=== PATIENT | female | born 1985 | race Caucasian/White ===

== ENCOUNTER 2018-08-07 08:22 | Emergency (ER) | payer SELFPAY ==
[2018-08-07 08:29] VITALS: BP 130/82
--- NOTE | 2018-08-07 08:44 | ER Document Report ---
ED General - General Chief Complaint: Knee Pain Stated Complaint: KNEE PAIN Time Seen by Provider: 08/07/18 08:44 Notes: Patient is a 32 year old female that presents to the emergency department for chief complaint of right knee pain and redness. Patient reports that she noticed pain and swelling of her right knee over this past weekend, but worsened significantly today. She currently rates her pain as a 9/10 over the knee cap area where the redness is. She describes the pain as a constant burning and aching sensation. She states she has felt hot but has not taken her temperature at home. Denies vomiting, headache, or noticing streaking up her leg. She states she has a rash on most of her joints that has not been diagnosed specfically, and has a patch below the right knee she thinks might have started this. Past Medical History: dermatologic condition Past Surgical History: cholecystectomy Social History: denies tobacco, ETOH, or drug use. Family History: Reviewed and noncontributory for presenting illness Allergies: Reviewed, see documented allergy list. REVIEW OF SYSTEMS: Other than noted above, the 12 point review of systems was reviewed with the patient and were negative, all pertinent findings are included in the HPI. PHYSICAL EXAMINATION: Vital signs reviewed, nursing noted reviewed. GENERAL: Well-appearing, well-nourished and in no acute distress. HEAD: Atraumatic, normocephalic. EYES: Eyes appear normal, extraocular movements intact, sclera anicteric, conjunctiva are normal. ENT: nares patent, oropharynx clear without exudates. Moist mucous membranes. NECK: Normal range of motion, supple without lymphadenopathy LUNGS: Breath sounds clear to auscultation bilaterally and equal. No wheezes rales or rhonchi. HEART: Regular rate and rhythm without murmurs ABDOMEN: Soft, nontender, normoactive bowel sounds. No rebound, guarding, or rigidity. No masses appreciated. EXTREMITIES: Right knee: There is tenderness over an area of erythema over the right patella. There is no joint line tenderess, no joint effusion appreciated , and she does no complain of joint pain with ROM of the right knee. The rest of the patients extremity exam is Nontender, good range of motion, no pitting or edema. NEUROLOGICAL: No focal neurological deficits. Moves all extremities spontaneously Motor and sensory grossly intact on exam. PSYCH: Normal mood, normal affect. SKIN: Warm, Dry, normal turgor, there is redness and minimal swelling over the anterior aspect over the right knee, just distal to this there is a large plaque with breaks in the skin with open aspects (no active bleeding), that has streaking toward the area of erythema over the knee. TRAVEL OUTSIDE OF THE [place] IN LAST 30 DAYS: No - Related Data Allergies/Adverse Reactions: clarithromycin [From Biaxin] Allergy (Intermediate, Verified 01/27/15 21:04) Hives oxycodone HCl [From OxyContin] Allergy (Intermediate, Verified 01/27/15 21:04) Agression, mood swings milk [Milk] Adverse Reaction (Intermediate, Verified 01/27/15 21:04) N&V Past Medical History - Social History Smoking Status: Never Smoker Family History: None, Reviewed & Not Pertinent - Past Medical History Cardiac Medical History: Denies: Hx Pulmonary Embolism Pulmonary Medical History: Reports: Hx Asthma - Last attack as child Denies: Hx Sleep Apnea, Hx Tuberculosis Neurological Medical History: Denies: Hx Seizures GI Medical History: Reports: Hx Gastroesophageal Reflux Disease - with Musculoskeletal Medical History: Denies Hx Fibromyalgia Traumatic Medical History: Denies: Hx Fractures Past Surgical History: Reports: Hx Section - x2, Hx Cholecystectomy. Denies: Hx Hysterectomy, Hx Pacemaker - Immunizations Hx Diphtheria, Pertussis, Tetanus Vaccination: Yes - within 5 years Physical Exam - Vital signs Vitals: Temp Pulse Resp BP Pulse Ox 97.9 F 100 18 130/82 H 98 08/07/18 08:27 08/07/18 08:27 08/07/18 08:27 08/07/18 08:27 08/07/18 08:27 Course - Re-evaluation Re-evalutation: Patient seen and examined vital signs reviewed. Patient was treated with norco 5mg/325mg and naproxen 500mg The patient was re-evaluated and was stable Evaluation was most consistent with right knee cellulitis, patient will be discharged with prescriptions for bactrim DS and keflex and advised close follow -up. She did not have any concerning signs of septic arthritis on my exam, no inguinal lympadenopathy, or lymphangitis, and felt this could be treated as an outpatient, patient given strict return precautions. Results were discussed with the patient at this point, after careful consideration I feel that that patient can be discharged from the emergency department, the patient was educated treatments and reasons to return to the emergency department based on their presumed diagnosis as noted above, they were advised to followup with a primary care physician in 2-3 days. Patient was agreeable to plan of care. *Note is created using voice recognition software and may contain spelling, syntax or grammatical errors. - Vital Signs Vital signs: Temp Pulse Resp BP Pulse Ox 97.9 F 100 18 130/82 H 98 08/07/18 08:27 08/07/18 08:27 08/07/18 08:27 08/07/18 08:27 08/07/18 08:27 Discharge - Discharge Clinical Impression: Cellulitis Qualifiers: Site of cellulitis: extremity Site of cellulitis of extremity: lower extremity Laterality: right Qualified Code(s): L03.115 - Cellulitis of right lower limb Condition: Stable Disposition: HOME, SELF-CARE Additional Instructions: If you notice that the area of redness is worsening after 24-48 hours of treatment with antibiotics, do not hesitate to return to the emergency department. Please follow-up with your primary care physician otherwise, call for an appointment today. Please complete the entire course of antibiotics prescribed. Prescriptions: Cephalexin Monohydrate [Keflex 500 mg Capsule] 500 mg PO Q8H 5 Days #21 capsule Naproxen [Naprosyn] 500 mg PO BID PRN #30 tablet PRN Reason: knee pain Sulfamethoxazole/Trimethoprim [Bactrim Ds Tablet] 1 each PO BID #14 tablet Referrals: [facility] [Provider Group] - Follow up in 3-5 days PK COOK MD [ACTIVE STAFF] - Follow up in 3-5 days (or your primary care. )
[2018-08-07] MEDS ORDERED: NAPROXEN 250 MG TABLET PO ONE (08:59)
[2018-08-07] MEDS ORDERED: HYDROCODONE/ACETAMINOPHEN 5-325 MG (6 TAB/ER DISP) PO PRN (09:00)
[2018-08-07] MEDS ORDERED: HYDROCODONE/ACETAMINOPHEN 5-325 MG TABLET PO ONE (09:00)
== END 2018-08-07 09:19 | disposition home or self-care (01) ==
LOC: ER 08:22
DX: L03.115 Cellulitis of right lower limb (principal); M25.561 Pain in right knee; Z90.49 Acquired absence of other specified parts of digestive tract; Z88.6 Allergy status to analgesic agent; Z88.1 Allergy status to other antibiotic agents; Z91.011 Allergy to milk products
CPT/HCPCS: 99283

== ENCOUNTER 2019-07-17 00:55 | Emergency (ER) | payer SELFPAY ==
[2019-07-17 01:21] LABS: ABSOLUTE BASOPHILS # (AUTO) 0.1 10^3/uL (0.0-0.2); ABSOLUTE EOSINOPHILS # (AUTO) 0.3 10^3/uL (0.0-0.6); ABSOLUTE LYMPHOCYTES (AUTO) 3.6 10^3/uL (0.5-4.7); ABSOLUTE MONOCYTES (AUTO) 0.8 10^3/uL (0.1-1.4); ABSOLUTE NEUT (AUTO) 4.5 10^3/uL (1.7-8.2); BASOPHILS % (AUTO) 0.8 % (0-2); EOSINOPHILS % (AUTO) 3.4 % (0-6); HEMOGLOBIN 13.1 g/dL (12.0-15.5); LYMPHOCYTES % (AUTO) 38.9 % (13-45); MEAN CORPUSCULAR HEMOGLOBIN 31.7 pg (27.0-33.4); MEAN CORPUSCULAR HGB CONC 34.4 g/dL (32.0-36.0); MEAN CORPUSCULAR VOLUME 92 fl (80-97); MONOCYTES % (AUTO) 8.9 % (3-13); PLATELET COUNT 341 10^3/uL (150-450); RED BLOOD COUNT 4.13 10^6/uL (3.72-5.28); RED CELL DISTRIBUTION WIDTH 13.3 % (11.5-14.0); TOTAL CELLS COUNTED % (AUTO) 100 %; WHITE BLOOD COUNT 9.3 10^3/uL (4.0-10.5)
[2019-07-17 01:31] LABS: APPEARANCE,URINE SLIGHTLY-CLOUDY; BILIRUBIN,URINE NEGATIVE (NEGATIVE); COLOR,URINE YELLOW; GLUCOSE, URINE NEGATIVE (NEGATIVE); KETONES,URINE NEGATIVE (NEGATIVE); LEUKOCYTE ESTERASE,URINE NEGATIVE (NEGATIVE); NITRITE,URINE NEGATIVE (NEGATIVE); PROTEIN,URINE 100 mg/dL (NEGATIVE); URINE SPECIFIC GRAVITY 1.023; UROBILINOGEN,URINE NEGATIVE mg/dL (<2.0)
[2019-07-17 01:40] LABS: ALBUMIN 4.3 g/dL (3.5-5.0); ALKALINE PHOSPHATASE 54 U/L (38-126); ANION GAP 10 (5-19); ASPARTATE AMINO TRANSFERASE 19 U/L (14-36); BILIRUBIN,DIRECT 0.1 mg/dL (0.0-0.4); BILIRUBIN,TOTAL 0.2 mg/dL (0.2-1.3); BLOOD UREA NITROGEN 13 mg/dL (7-20); CALCIUM 9.5 mg/dL (8.4-10.2); CARBON DIOXIDE 24 mmol/L (22-30); CHLORIDE 106 mmol/L (98-107); GLUCOSE 106 mg/dL (75-110); POTASSIUM 3.8 mmol/L (3.6-5.0); TOTAL PROTEIN 7.2 g/dL (6.3-8.2)
[2019-07-17] MEDS ORDERED: KETOROLAC TROMETHAMINE INJ/PF 30 MG/1 ML SDV IV ONE ×2 (03:48→09:20)
[2019-07-17] MEDS ORDERED: ONDANSETRON HCL INJ/PF 4 MG/2 ML SDV IV ONE ×3 (03:49→09:20)
--- NOTE | 2019-07-17 05:39 | ER Document Report ---
ED General - General TRAVEL OUTSIDE OF THE [place] IN LAST 30 DAYS: No - HPI Onset: Just prior to arrival Onset/Duration: Gradual Severity: Moderate Pain Level: 3 Exacerbated by: Movement Relieved by: Denies Similar symptoms previously: Yes Recently seen / treated by doctor: Yes <SHANTELL VELASQUEZ - Last Filed: 07/17/19 05:36> <ANGIE MEDEIROS IV - Last Filed: 07/17/19 10:58> - General Chief Complaint: Abdominal Pain Stated Complaint: ABDOMINAL PAIN Time Seen by Provider: 07/17/19 03:34 Primary Care Provider: GARRY MORENO MD [NO LOCAL MD] - Follow up as needed - HPI Context: 33 year old with left lower back/ flank pain that is intense and unremitting. No fever or chills. Nausea without vomiting. Pain radiates around flank. No h/o stones. FDLMP is now. (SHANTELL VELASQUEZ) - Related Data Allergies/Adverse Reactions: clarithromycin [From Biaxin] Allergy (Intermediate, Verified 01/27/15 21:04) Hives oxycodone HCl [From OxyContin] Allergy (Intermediate, Verified 01/27/15 21:04) Agression, mood swings milk [Milk] Adverse Reaction (Intermediate, Verified 01/27/15 21:04) N&V Past Medical History - Social History Smoking Status: Current Every Day Smoker Chew tobacco use (# tins/day): No Frequency of alcohol use: None Drug Abuse: None Family History: None, Reviewed & Not Pertinent Patient has suicidal ideation: No Patient has homicidal ideation: No - Past Medical History Cardiac Medical History: Denies: Hx Pulmonary Embolism Pulmonary Medical History: Reports: Hx Asthma - Last attack as child Denies: Hx Sleep Apnea, Hx Tuberculosis Neurological Medical History: Denies: Hx Seizures Renal/ Medical History: Denies: Hx Peritoneal Dialysis GI Medical History: Reports: Hx Gastroesophageal Reflux Disease - with Musculoskeletal Medical History: Denies Hx Fibromyalgia Traumatic Medical History: Denies: Hx Fractures Past Surgical History: Reports: Hx Section - x2, Hx Cholecystectomy. Denies: Hx Hysterectomy, Hx Pacemaker - Immunizations Hx Diphtheria, Pertussis, Tetanus Vaccination: Yes - within 5 years <SHANTELL VELASQUEZ P - Last Filed: 07/17/19 05:36> Review of Systems - Review of Systems Constitutional: No symptoms reported EENT: No symptoms reported Cardiovascular: No symptoms reported Respiratory: No symptoms reported Gastrointestinal: No symptoms reported Genitourinary: No symptoms reported Female Genitourinary: No symptoms reported Musculoskeletal: No symptoms reported Skin: No symptoms reported Hematologic/Lymphatic: No symptoms reported Neurological/Psychological: No symptoms reported <SHANTELL VELASQUEZ P - Last Filed: 07/17/19 05:36> Physical Exam - Vital signs Interpretation: Normal - General General appearance: Appears well, Alert - HEENT Head: Normocephalic, Atraumatic Eyes: Normal Pupils: PERRL - Respiratory Respiratory status: No respiratory distress Chest status: Nontender Breath sounds: Normal Chest palpation: Normal - Cardiovascular Rhythm: Regular Heart sounds: Normal auscultation Murmur: No - Abdominal Inspection: Normal Distension: No distension Bowel sounds: Normal Tenderness: Nontender Organomegaly: No organomegaly - Back Back: Normal, Nontender - Extremities General upper extremity: Normal inspection, Nontender, Normal color, Normal ROM, Normal temperature General lower extremity: Normal inspection, Nontender, Normal color, Normal ROM, Normal temperature, Normal weight bearing. No: Balbir's sign - Neurological Neuro grossly intact: Yes Cognition: Normal Orientation: AAOx4 Caro Coma Scale Eye Opening: Spontaneous [place] Coma Scale Verbal: Oriented [place] Coma Scale Motor: Obeys Commands [place] Coma Scale Total: 15 Speech: Normal Motor strength normal: LUE, RUE, LLE, RLE Sensory: Normal - Psychological Associated symptoms: Normal affect, Normal mood - Skin Skin Temperature: Warm Skin Moisture: Dry Skin Color: Normal <SHANTELL VELASQUEZ P - Last Filed: 07/17/19 05:36> - Vital signs Vitals: Temp Pulse Resp BP Pulse Ox 97.5 F 67 20 147/92 H 100 07/17/19 00:58 07/17/19 00:58 07/17/19 00:58 07/17/19 00:58 07/17/19 00:58 Course - Laboratory Result Diagrams: 07/17/19 01:05 07/17/19 01:05 <SHANTELL VELASQUEZ P - Last Filed: 07/17/19 05:36> - Laboratory Result Diagrams: 07/17/19 01:05 07/17/19 01:05 <ANGIE MEDEIROS IV - Last Filed: 07/17/19 10:58> - Re-evaluation Re-evalutation: 07/17/19 05:38 MDM 33 year old with left flank pain. Somewhat sounds colicy. No fever. Blood in urine but currently having mences. (SHANTELL VELASQUEZ) - Vital Signs Vital signs: Temp Pulse Resp BP Pulse Ox 97.5 F 67 16 122/76 98 07/17/19 00:58 07/17/19 00:58 07/17/19 07:00 07/17/19 07:00 07/17/19 07:01 - Laboratory Laboratory results interpreted by me: 07/17/19 01:05 Urine Protein 100 H Urine Blood LARGE H Discharge <SHANTELL VELASQUEZ - Last Filed: 07/17/19 05:36> <ANGIE MEDEIROS IV - Last Filed: 07/17/19 10:58> - Discharge Clinical Impression: Left ureteral calculus Condition: Good Disposition: HOME, SELF-CARE Instructions: Kidney Stone ([facility]) Additional Instructions: FOLLOW UP WITH UROLOGY INSTRUCTED HOME CARE INSTRUCTIONS & INFORMATION: Thank you for choosing us for your medical needs. We hope you're satisfied with the care you received. After you leave, you must properly care for your problem and, at the same time, observe its progress. Any condition can change. Some illnesses can change rapidly over hours or days. If your condition worsens, return to the Emergency Department or see your physician promptly. ABOUT YOUR X-RAYS AND EKG'S: If you had an EKG or X-rays taken, they have been read by the Emergency Physician. The X-rays and EKG's will also be read by a Radiologist or Tannery Gummer within 24 hours. If discrepancies are noted, you will be notified by telephone. Please be certain the ED has a correct telephone number & address where you can be reached. Also, realize that some fractures or abnormalities do not show up on initial X-rays. If your symptoms continue, see your physician. ABOUT YOUR LABORATORY TEST: If you had laboratory tests, the results have been reviewed by the Emergency Physician. Some test results (for example cultures) may not be available for several days. You will be contacted if any test result shows you need additional treatment. Please be certain the ED has a correct telephone number and address where you can be reached. ABOUT YOUR MEDICATIONS: You will receive instructions on how to take your m edicine on the prescription label you receive. Additional information may be provided by the Pharmacy. If you have questions afterwards, call the ED for clarification or further instructions. Some prescribed medications may cause drowsiness. Do not perform tasks such as driving a car or operating machinery without consulting your Pharmacist. If you feel you need a refill of pain medication, your condition will need re-evaluation. Please do not call for a refill of any medication. ABOUT YOUR SIGNATURE: Signature of this document acknowledges to followin. Understanding that you received emergency treatment and that you may be released before al medical problems are known or treated. Please be certain the ED has a correct phone number & address where you can be reached. 2. Acknowledgement that you will arrange for follow-up care as recommended. 3. Authorization for the Emergency Physician to provide information to your follow-up Physician in order to maximize your care. AT ANY TIME, IF YOUR SYMPTOMS CHANGE SIGNIFICANTLY OR WORSEN OR YOU DEVELOP NEW SYMPTOMS, RETURN TO THE EMERGENCY DEPARTMENT IMMEDIATELY FOR RE-EVALUATION. OUR GOAL IS TO PROVIDE EXCELLENT MEDICAL CARE! WE HOPE THAT WE HAVE MET YOUR EXPECTATIONS DURING YOUR EMERGENCY DEPARTMENT VISIT AND THAT YOU FEEL YOU HAVE RECEIVED EXCELLENT CARE! Prescriptions: Ondansetron [Zofran Odt 4 mg Tablet] 1 - 2 tab PO Q8HP PRN #30 tab.rapdis PRN Reason: For Nausea/Vomiting Tamsulosin HCl [Flomax 0.4 mg Cap.sr] 0.4 mg PO DAILY #10 cap.sr.24h Ketorolac Tromethamine [Toradol 10 mg Tablet] 10 mg PO Q6 PRN #20 tablet PRN Reason: Pain Scale Per Md Hydrocodone/Acetaminophen [Vicodin 5-300 mg Tablet] 1 each PO Q6H PRN #15 tablet PRN Reason: Pain Scale Per Md Referrals: GARRY MORENO MD [NO LOCAL MD] - Follow up as needed
[2019-07-17] MEDS ORDERED: HYDROMORPHONE HCL INJ/PF 2 MG/ML AMPULE IV ONE (06:03)
[2019-07-17] MEDS ORDERED: PROMETHAZINE HCL INJ 25 MG/1 ML VIAL IV ONE (07:26)
[2019-07-17] MEDS ORDERED: FENTANYL CITRATE INJ/PF 100 MCG/2 ML AMPUL IV ONE (07:29)
--- NOTE | 2019-07-17 08:22 | RADIOLOGY REPORT (SQ) ---
EXAM DESCRIPTION: CT ABD/PELVIS WITH IV ONLY COMPLETED DATE/TIME: 07/17/2019 5:54 am REASON FOR STUDY: left flank pain. HCG NEGATIVE. COMPARISON: None. TECHNIQUE: CT scan of the abdomen and pelvis performed using helical scanning technique with dynamic intravenous contrast injection. No oral contrast. Images reviewed with lung, soft tissue, and bone windows. Reconstructed coronal and sagittal MPR images reviewed. Delayed images for evaluation of the urinary system also acquired. All images stored on PACS. All CT scanners at this facility use dose modulation, iterative reconstruction, and/or weight based d osing when appropriate to reduce radiation dose to as low as reasonably achievable (ALARA). [facility]: Dose Right [facility]: CareDose [facility]: Dose Right [facility]: Teradose 4D [facility]: TrunqShow CONTRAST TYPE AND DOSE: 98 mL Omnipaque 350 iodinated contrast IV RENAL FUNCTION: None required. The patient is less than 50 years old. RADIATION DOSE: . LIMITATIONS: None. FINDINGS: LOWER CHEST: No significant findings. No nodules or infiltrates. LIVER: Normal size. No masses. No dilated ducts. SPLEEN: Normal size. No focal lesions. PANCREAS: No masses. No significant calcifications. No adjacent inflammation or peripancreatic fluid collections. Pancreatic duct not dilated. GALLBLADDER: Surgically absent. ADRENAL GLANDS: No significant masses or asymmetry. RIGHT KIDNEY AND URETER: No solid masses. Tiny nonobstructive superior pole calculus (series 3, steve ge [id number]). No hydronephrosis or hydroureter. LEFT KIDNEY AND URETER: No solid masses. There is a 4 mm obstructive calculus of the distal left ur eter with moderate associated left hydronephrosis and hydroureter and perinephric fat stranding. AORTA AND VESSELS: No aneurysm. No dissection. Renal arteries, SMA, celiac without stenosis. RETROPERITONEUM: No retroperitoneal adenopathy, hemorrhage or masses. BOWEL AND PERITONEAL CAVITY: No masses or inflammatory changes. No free fluid or peritoneal masses. APPENDIX: Normal. PELVIS: No mass. No free fluid. Normal bladder. ABDOMINAL WALL: No masses. No hernias. BONES: No significant or acute findings. OTHER: No other significant finding. IMPRESSION: 1. There is a 4 mm obstructive calculus of the distal left ureter with moderate associat ed left hydronephrosis and hydroureter and perinephric fat stranding. 2. Tiny nonobstructive superior pole calculus of the right kidney. TECHNICAL DOCUMENTATION: JOB ID: [id number] Quality ID # [id number]: Final reports with documentation of one or more dose reduction techniques (e.g., Au tomated exposure control, adjustment of the mA and/or kV according to patient size, use of iterative reconstruction technique) 2010 [employer]- All Rights Reserved Reading location - IP/workstation name: [email or web address]
[2019-07-17] MEDS ORDERED: TAMSULOSIN HCL 0.4 MG CAP.SR.24H PO ONE (09:20)
[2019-07-17 11:11] VITALS: BP 115/58
== END 2019-07-17 11:11 | disposition home or self-care (01) ==
LOC: ER 00:55
DX: N20.1 Calculus of ureter (principal); R10.9 Unspecified abdominal pain; M54.5 Low back pain; R11.0 Nausea; F17.200 Nicotine dependence, unspecified, uncomplicated; Z88.3 Allergy status to other anti-infective agents; Z88.6 Allergy status to analgesic agent; Z90.49 Acquired absence of other specified parts of digestive tract
CPT/HCPCS: 96376; 99284; 96374; 96375; 36415; 83690; 85025; 81025; 80053; 81001; 74177; J3010; J1885; J1170; J2550; J2405

== ENCOUNTER 2019-07-20 11:26 | Emergency (ER) | payer SELFPAY ==
[2019-07-20] MEDS ORDERED: ONDANSETRON HCL INJ/PF 4 MG/2 ML SDV IV ONE (11:43)
[2019-07-20] MEDS ORDERED: MORPHINE SULFATE 10 MG/ML INJ IV ONE ×2 (11:43→12:08)
--- NOTE | 2019-07-20 11:44 | ER Document Report ---
ED Medical Screen (RME) - General Chief Complaint: Possible Kidney Stone Stated Complaint: POSSIBLE KIDNEY STONE Time Seen by Provider: 07/20/19 11:42 Mode of Arrival: Ambulatory Information source: Patient Notes: Patient presents complaining of left flank pain for the past 4 days. Patient was recently diagnosed with a kidney stone. Patient reports nausea and vomiting at home and pain that is not managed with her pain medicine at home. I have greeted and performed a rapid initial assessment of this patient. A comprehensive ED assessment and evaluation of the patient, analysis of test results and completion of the medical decision making process will be conducted by additional ED providers. TRAVEL OUTSIDE OF THE [place] IN LAST 30 DAYS: No - Related Data Allergies/Adverse Reactions: clarithromycin [From Biaxin] Allergy (Intermediate, Verified 01/27/15 21:04) Hives oxycodone HCl [From OxyContin] Allergy (Intermediate, Verified 01/27/15 21:04) Agression, mood swings milk [Milk] Adverse Reaction (Intermediate, Verified 01/27/15 21:04) N&V Past Medical History - Social History Family history: None - Past Medical History Cardiac Medical History: Denies: Hx Pulmonary Embolism Pulmonary Medical History: Reports: Hx Asthma - Last attack as child Denies: Hx Sleep Apnea, Hx Tuberculosis Neurological Medical History: Denies: Hx Seizures Renal/ Medical History: Denies: Hx Peritoneal Dialysis GI Medical History: Reports: Hx Gastroesophageal Reflux Disease - with Musculoskeltal Medical History: Denies Hx Fibromyalgia Traumatic Medical History: Denies: Hx Fractures Past Surgical History: Reports: Hx Section - x2, Hx Cholecystectomy. Denies: Hx Hysterectomy, Hx Pacemaker - Immunizations Hx Diphtheria, Pertussis, Tetanus Vaccination: Yes - within 5 years Physical Exam - Vital signs Vitals: Temp Pulse Resp BP Pulse Ox 97.4 F 107 H 19 138/106 H 97 07/20/19 11:30 07/20/19 11:30 07/20/19 11:30 07/20/19 11:30 07/20/19 11:30 - General General appearance: Alert, Anxious Notes: Left flank pain Course - Vital Signs Vital signs: Temp Pulse Resp BP Pulse Ox 97.4 F 107 H 19 138/106 H 97 07/20/19 11:30 07/20/19 11:30 07/20/19 11:30 07/20/19 11:30 07/20/19 11:30
[2019-07-20] MEDS ORDERED: NORMAL SALINE 1000 ML 1,000 ML IV ONE (12:08)
[2019-07-20 12:23] LABS: ABSOLUTE BASOPHILS # (AUTO) 0.1 10^3/uL (0.0-0.2); ABSOLUTE EOSINOPHILS # (AUTO) 0.2 10^3/uL (0.0-0.6); ABSOLUTE LYMPHOCYTES (AUTO) 1.6 10^3/uL (0.5-4.7); ABSOLUTE NEUT (AUTO) 11.3 10^3/uL (1.7-8.2); BASOPHILS % (AUTO) 0.4 % (0-2); EOSINOPHILS % (AUTO) 1.1 % (0-6); HEMATOCRIT 37.7 % (36.0-47.0); HEMOGLOBIN 12.7 g/dL (12.0-15.5); LYMPHOCYTES % (AUTO) 11.3 % (13-45); MEAN CORPUSCULAR HEMOGLOBIN 30.9 pg (27.0-33.4); MEAN CORPUSCULAR HGB CONC 33.6 g/dL (32.0-36.0); MEAN CORPUSCULAR VOLUME 92 fl (80-97); MONOCYTES % (AUTO) 7.4 % (3-13); PLATELET COUNT 330 10^3/uL (150-450); RED CELL DISTRIBUTION WIDTH 13.3 % (11.5-14.0); SEGMENTED NEUTROPHILS % (AUTO) 79.8 % (42-78); TOTAL CELLS COUNTED % (AUTO) 100 %; WHITE BLOOD COUNT 14.2 10^3/uL (4.0-10.5)
[2019-07-20 12:33] LABS: APPEARANCE,URINE SLIGHTLY-CLOUDY; BILIRUBIN,URINE NEGATIVE (NEGATIVE); COLOR,URINE YELLOW; GLUCOSE, URINE NEGATIVE (NEGATIVE); KETONES,URINE TRACE mg/dL (NEGATIVE); PROTEIN,URINE NEGATIVE (NEGATIVE); URINE SPECIFIC GRAVITY 1.013; UROBILINOGEN,URINE NEGATIVE mg/dL (<2.0)
[2019-07-20] MEDS ORDERED: KETOROLAC TROMETHAMINE INJ/PF 30 MG/1 ML SDV IV ONE (12:33)
[2019-07-20] MEDS ORDERED: PROMETHAZINE HCL INJ 25 MG/1 ML VIAL IV ONE (12:33)
[2019-07-20 12:39] LABS: ANION GAP 11 (5-19); BLOOD UREA NITROGEN 14 mg/dL (7-20); CALCIUM 10.1 mg/dL (8.4-10.2); CARBON DIOXIDE 24 mmol/L (22-30); CHLORIDE 104 mmol/L (98-107); GLUCOSE 93 mg/dL (75-110); POTASSIUM 4.3 mmol/L (3.6-5.0)
--- NOTE | 2019-07-20 12:45 | RADIOLOGY REPORT (SQ) ---
EXAM DESCRIPTION: KUB/ABDOMEN (SINGLE VIEW) COMPLETED DATE/TIME: 07/20/2019 12:34 pm REASON FOR STUDY: renal colic COMPARISON: CT. NUMBER OF VIEWS: One view. TECHNIQUE: Supine radiographic image of the abdomen acquired. LIMITATIONS: None. FINDINGS: BOWEL GAS PATTERN: Normal bowel gas pattern. No dilated loops. CALCIFICATIONS: Distal left ureteral calculus. Seen previous CT. SOFT TISSUES: No gross mass or suggestion of organomegaly. HARDWARE: Right upper quadrant clips. BONES: No acute fracture. No worrisome bone lesions. OTHER: No other significant finding. IMPRESSION: Persistent distal left ureteral calculus. TECHNICAL DOCUMENTATION: JOB ID: [id number] [employer]- All Rights Reserved Reading location - IP/workstation name: [email or web address]
[2019-07-20] MEDS ORDERED: METOCLOPRAMIDE HCL INJ/PF 10 MG/2 ML SDV IV ONE (13:05)
[2019-07-20] MEDS ORDERED: HYDROMORPHONE HCL INJ/PF 2 MG/ML AMPULE IV STA (13:05)
--- NOTE | 2019-07-20 13:09 | ER Document Report ---
ED General - General Chief Complaint: Flank Pain Stated Complaint: POSSIBLE KIDNEY STONE Time Seen by Provider: 07/20/19 11:42 Mode of Arrival: Ambulatory TRAVEL OUTSIDE OF THE [place] IN LAST 30 DAYS: No - HPI Notes: This is a 33-year-old female who presents with a complaint of left flank pain for the past few days. Patient describes sharp colicky pain radiating to left groin. [place] of the symptoms include nausea, vomiting, difficulty urinating. Patient was seen here on Monday with similar presentation. She was diagnosed with a 4 mm ureteral stone. Patient states that she was sent home on Vicodin, Toradol and Flomax. She states the medications are not helping. She denies any fever or chills. Describes her symptoms as severe. - Related Data Allergies/Adverse Reactions: clarithromycin [From Biaxin] Allergy (Intermediate, Verified 01/27/15 21:04) Hives oxycodone HCl [From OxyContin] Allergy (Intermediate, Verified 01/27/15 21:04) Agression, mood swings milk [Milk] Adverse Reaction (Intermediate, Verified 01/27/15 21:04) N&V Past Medical History - General Information source: Patient - Social History Smoking Status: Current Every Day Smoker Chew tobacco use (# tins/day): No Frequency of alcohol use: None Drug Abuse: None Family History: None, Reviewed & Not Pertinent Patient has suicidal ideation: No Patient has homicidal ideation: No - Past Medical History Cardiac Medical History: Denies: Hx Pulmonary Embolism Pulmonary Medical History: Reports: Hx Asthma - Last attack as child Denies: Hx Sleep Apnea, Hx Tuberculosis Neurological Medical History: Denies: Hx Seizures Renal/ Medical History: Denies: Hx Peritoneal Dialysis GI Medical History: Reports: Hx Gastroesophageal Reflux Disease - with Musculoskeletal Medical History: Denies Hx Fibromyalgia Traumatic Medical History: Denies: Hx Fractures Past Surgical History: Reports: Hx Section - x2, Hx Cholecystectomy. Denies: Hx Hysterectomy, Hx Pacemaker - Immunizations Hx Diphtheria, Pertussis, Tetanus Vaccination: Yes - within 5 years Review of Systems - Review of Systems Constitutional: denies: Fever Gastrointestinal: Abdominal pain, Nausea, Vomiting Genitourinary: Flank pain. denies: Burning, Dysuria, Frequency, Hematuria -: Yes All other systems reviewed and negative Physical Exam - Vital signs Vitals: Temp Pulse Resp BP Pulse Ox 97.4 F 107 H 19 138/106 H 97 07/20/19 11:30 07/20/19 11:30 07/20/19 11:30 07/20/19 11:30 07/20/19 11:30 - General General appearance: Alert, Other - Patient appears uncomfortable, in pain. - Respiratory Respiratory status: No respiratory distress Chest status: Nontender Breath sounds: Normal Chest palpation: Normal - Cardiovascular Rhythm: Regular Heart sounds: Normal auscultation Murmur: No - Abdominal Inspection: Normal Distension: No distension Bowel sounds: Normal Tenderness: Other - There is left CVA tenderness. Organomegaly: No organomegaly - Back Back: Normal, Nontender, CVA tenderness - left CVA tenderness - Neurological Neuro grossly intact: Yes Cognition: Normal Orientation: AAOx4 Caro Coma Scale Eye Opening: Spontaneous [place] Coma Scale Verbal: Oriented [place] Coma Scale Motor: Obeys Commands Caro Coma Scale Total: 15 Speech: Normal Motor strength normal: LUE, RUE, LLE, RLE Sensory: Normal - Psychological Associated symptoms: Normal affect, Normal mood Course - Re-evaluation Re-evalutation: 07/20/19 12:001 Picture is consistent with ureteral colic. There is no indication to repeat CT scan that was just done. Will get plain films to evaluate stone. 1232 Patient feels better but still has some pain. Toradol ordered. 1308 Patient states the pain is still 5 out of 5 now. She still vomiting. We will give her Reglan and Dilaudid. 07/20/19 13:44 Patient reevaluated. She feels much better. She is doing well. Patient states that Percocet seems to work better for her than Vicodin. I will prescribe Percocet for her. She is stable for discharge. She needs to follow-up with urology. She understands that. - Vital Signs Vital signs: Temp Pulse Resp BP Pulse Ox 97.4 F 107 H 19 138/106 H 97 07/20/19 11:30 07/20/19 11:30 07/20/19 11:30 07/20/19 11:30 07/20/19 11:30 - Laboratory Result Diagrams: 07/20/19 12:00 07/20/19 12:00 Laboratory results interpreted by me: 07/20/19 07/20/19 07/20/19 11:50 12:00 12:00 WBC 14.2 H Lymph % (Auto) 11.3 L Absolute Neuts (auto) 11.3 H Seg Neutrophils % 79.8 H Est GFR (MDRD) Non-Af 59 L Urine Ketones TRACE H Urine Blood SMALL H Discharge - Discharge Clinical Impression: Renal colic on left side Condition: Good Disposition: HOME, SELF-CARE Instructions: Kidney Stone ([facility]) Prescriptions: Oxycodone HCl/Acetaminophen [Percocet 5-325 mg Tablet] 1 tab PO Q6 PRN #20 tab PRN Reason: For Pain Referrals: WINNIE MCCONNELL MD [NO LOCAL MD] - Follow up as needed (Call on Monday to schedule appointment. )
[2019-07-20 14:43] VITALS: BP 129/82
== END 2019-07-20 14:28 | disposition home or self-care (01) ==
LOC: ER 11:26
DX: N23 Unspecified renal colic (principal); R11.2 Nausea with vomiting, unspecified; R30.0 Dysuria; Z88.3 Allergy status to other anti-infective agents; Z88.6 Allergy status to analgesic agent; F17.200 Nicotine dependence, unspecified, uncomplicated; Z90.49 Acquired absence of other specified parts of digestive tract
CPT/HCPCS: 36415; 85025; 80048; 81001; 74018; J1885; J2765; J2270; J1170; J2405; J7030; 96361; 96374; 96375; 99284

== ENCOUNTER 2020-05-03 07:08 | Emergency (ER) | payer SELFPAY ==
[2020-05-03] MEDS ORDERED: PREDNISONE 20 MG TABLET PO ONE (08:25)
[2020-05-03] MEDS ORDERED: FAMOTIDINE 20 MG TABLET PO ONE (08:25)
[2020-05-03] MEDS ORDERED: DIPHENHYDRAMINE HCL 50 MG CAPSULE PO ONE (08:25)
--- NOTE | 2020-05-03 08:27 | ER Document Report ---
ED Allergic Reaction - General Chief Complaint: Allergic Reaction Stated Complaint: ALLERGIC REACTION Time Seen by Provider: 05/03/20 08:19 Notes: Patient is a 34-year-old female who presents emergency department with an allergic reaction to her hands and her left foot. Patient states that she was working out in the yard yesterday and her hands started swelling the left side of her face started swelling also. She also notes hives that showed up on her buttock area this morning. Denies any past medical history. TRAVEL OUTSIDE OF THE [place] IN LAST 30 DAYS: No - Related Data Allergies/Adverse Reactions: clarithromycin [From Biaxin] Allergy (Intermediate, Verified 05/03/20 07:31) Hives oxycodone HCl [From OxyContin] Allergy (Intermediate, Verified 05/03/20 07:31) Agression, mood swings milk [Milk] Adverse Reaction (Intermediate, Verified 05/03/20 07:31) N&V Past Medical History - General Information source: Patient - Social History Smoking Status: Current Every Day Smoker Chew tobacco use (# tins/day): No Frequency of alcohol use: None Drug Abuse: None Family History: None, Reviewed & Not Pertinent Patient has homicidal ideation: No - Past Medical History Cardiac Medical History: Denies: Hx Pulmonary Embolism Pulmonary Medical History: Reports: Hx Asthma - Last attack as child Denies: Hx Sleep Apnea, Hx Tuberculosis Neurological Medical History: Denies: Hx Seizures Renal/ Medical History: Denies: Hx Peritoneal Dialysis GI Medical History: Reports: Hx Gastroesophageal Reflux Disease - with Musculoskeletal Medical History: Denies Hx Fibromyalgia Traumatic Medical History: Denies: Hx Fractures Past Surgical History: Reports: Hx Section - x2, Hx Cholecystectomy. Denies: Hx Hysterectomy, Hx Pacemaker - Immunizations Hx Diphtheria, Pertussis, Tetanus Vaccination: Yes - within 5 years Review of Systems - Review of Systems Notes: REVIEW OF SYSTEMS: CONSTITUTIONAL : Denies recent illness. Denies recent unintentional weight loss. Denies fever, chills, or sweats. EENT: Denies eye, ear, throat, or mouth pain, discharge, or symptoms. Denies nasal or sinus congestion. CARDIOVASCULAR: Denies chest pain. RESPIRATORY: Denies shortness of breath, cough, congestion, difficulty breathing, or wheezing. GASTROINTESTINAL: Denies nausea, vomiting, and diarrhea. Denies abdominal pain. Denies constipation. See HPI. GENITOURINARY: Denies difficulty urinating, burning, blood in urine, urgency or frequency. MUSCULOSKELETAL: Denies neck and back pain. Denies joint pain or swelling. SKIN: See HPI. HEMATOLOGIC : Denies easy bruising or bleeding. LYMPHATIC: Denies swollen, painful, enlarged glands. NEUROLOGICAL: Denies no numbness or tingling denies weakness. Denies headache. Denies altered mental status. Denies alteration in speech. PSYCHIATRIC: Denies stress, anxiety, alteration in sleep patterns, or depression. All other systems reviewed and negative. Physical Exam - Vital signs Vitals: Temp Pulse Resp BP Pulse Ox 98.0 F 94 20 125/81 99 05/03/20 07:12 05/03/20 07:12 05/03/20 07:12 05/03/20 07:12 05/03/20 07:12 - Notes Notes: PHYSICAL EXAMINATION: GENERAL: Appears well, healthy, well-nourished, no acute distress. HEAD: Normocephalic, atraumatic. EYES: PERRL, conjunctiva normal, all extraocular movements intact, sclera nonicteric ENT: Moist mucous membranes. NECK: Supple, no noticeable swelling, redness, rash. Normal range of motion. LUNGS: Equal breath sounds bilaterally and clear to auscultation. No wheezes rales or rhonchi. CARDIOVASCULAR: S1-S2, regular rate, regular rhythm. Radial pulses 2+, normal. ABDOMEN: Normoactive bowel sounds. Soft, nontender, no guarding, no rebound tenderness, and no masses palpated. EXTREMITIES: Normal strength and range of motion, no pitting or edema. No cyanosis. NEUROLOGICAL: Moves all extremities upon command. Strength 5/5 in all extremit ies. PSYCH: Normal mood, normal affect. SKIN: Warm, dry. No rash, lesions, ulcerations noted. Normal skin turgor. Course - Re-evaluation Re-evalutation: 05/03/20 09:56 Patient states the swelling in her left hand is decreasing. I did also see that myself. We will start patient on prednisone, Benadryl, and Pepcid. She will follow-up with her primary care provider as needed. Airway is patent. No respiratory distress noted. Follow-up precautions were given. Verbal discharge instructions were given to the patient. They verbalized understanding. They are stable for discharge. - Vital Signs Vital signs: Temp Pulse Resp BP Pulse Ox 98.0 F 94 20 125/81 99 05/03/20 07:12 05/03/20 07:12 05/03/20 07:12 05/03/20 07:12 05/03/20 07:12 Discharge - Discharge Clinical Impression: Allergic reaction Qualifiers: Encounter type: initial encounter Qualified Code(s): T78.40XA - Allergy, unspecified, initial encounter Condition: Stable Disposition: HOME, SELF-CARE Additional Instructions: You were seen today in the emergency department for an allergic reaction. Take Pepcid 40 mg twice a day for the next week. Take prednisone as prescribed. Take Benadryl 50 mg every 6 hours for hives/itchiness. Prescriptions: Prednisone [Deltasone 20 mg Tablet] 3 tab PO DAILY 5 Days #15 tablet Famotidine [Pepcid 20 mg Tablet] 40 mg PO BID #28 tablet Forms: Return to Work
[2020-05-03 10:37] VITALS: BP 121/73
== END 2020-05-03 10:37 | disposition home or self-care (01) ==
LOC: ER 07:08
DX: T78.40XA Allergy, unspecified, initial encounter (principal); M79.89 Other specified soft tissue disorders; X58.XXXA Exposure to other specified factors, initial encounter; J45.909 Unspecified asthma, uncomplicated; F17.200 Nicotine dependence, unspecified, uncomplicated; Z88.1 Allergy status to other antibiotic agents; Z88.6 Allergy status to analgesic agent; Z88.5 Allergy status to narcotic agent
CPT/HCPCS: 99283; J7512